=== PATIENT | female | born 1985 ===

== ENCOUNTER 2017-04-10 16:07 | Emergency (ER) | payer MEDICAID, OTHER ==
[2017-04-10 16:07] VITALS: BMI 43.2
[2017-04-10 16:24] VITALS: TEMP 97.9
--- NOTE | 2017-04-10 16:41 | ED PDOC ---
Arrival/HPI - General Historian: Patient - History of Present Illness Time/Duration: Other (3 days) Context: Home - General Chief Complaint: Dizziness/Lightheaded Time Seen by Provider: 04/10/17 16:16 - History of Present Illness Narrative History of Present Illness (Text): 04/10/17 16:38 This 31 yo female presents to this ED c/o fatigue, nausea, decreased appetite x 3 days. Patient stated she had a gastric Sleeve done 5 weeks ago. Patient saw her surgeon last week, and she was feeling well. On the contrary to triage note , patient denies abdominal pain. Patient developed nausea, and she feels she has not been eating or drinking enough. Denies fever, sob, cp, rectal bleeding, melena, hematemesis, dizziness, or abnormal gait. (Jasmine Bernal) Past Medical History - Provider Review Nursing Documentation Reviewed: Yes - Infectious Disease Hx of Infectious Diseases: None - Tetanus Immunization Tetanus Immunization: Unknown - Past Medical History Past Medical History: No Previous - Cardiac Hx Cardiac Arrhythmia: Yes (tachycardia) Hx Hypertension: Yes - Pulmonary Hx Respiratory Disorders: Yes Hx Asthma: Yes - Neurological Hx Neurological Disorder: No - HEENT Hx HEENT Disorder: No - Renal Hx Renal Disorder: No - Endocrine/Metabolic Hx Endocrine Disorders: No - Hematological/Oncological Hx Blood Transfusions: No Hx Blood Transfusion Reaction: No - Integumentary Hx Dermatological Disorder: No - Musculoskeletal/Rheumatological Hx Musculoskeletal Disorders: No - Gastrointestinal Hx Gall Bladder Disease: Yes (gallstones) - Genitourinary/Gynecological Hx Genitourinary Disorders: No - Psychiatric Hx Emotional Abuse: No Hx Physical Abuse: No Hx Substance Use: No - Surgical History Hx Section: Yes (x 4) Other/Comment: gastric sleeve 02/2017 - Anesthesia Hx Anesthesia: Yes Hx Anesthesia Reactions: No (itching) Hx Malignant Hyperthermia: No - Suicidal Assessment Feels Threatened In Home Enviroment: No Family/Social History - Physician Review Nursing Documentation Reviewed: Yes Family/Social History: Other (non-contributory) Smoking Status: Never Smoked Hx Alcohol Use: No Hx Substance Use: No Hx Substance Use Treatment: No Allergies/Home Meds Allergies/Adverse Reactions: Allergies lidocaine Adverse Reaction (Verified 04/10/17 16:24) RASH Home Medications: Home Meds Medication Instructions Recorded Confirmed Albuterol HFA [Ventolin HFA 90 2 puff INH PRN PRN 10/13/15 04/10/17 mcg/actuation (8 g)] Omeprazole [Prilosec] 40 mg PO DAILY 10/13/15 04/10/17 Review of Systems - Review of Systems Constitutional: Fatigue. absent: Weight Change, Fevers, Night Sweats Eyes: Normal ENT: Normal. absent: Sore Throat, Rhinorrhea Respiratory: Normal. absent: SOB, Cough, Sputum, Wheezing Cardiovascular: Normal. absent: Chest Pain, Palpitations Gastrointestinal: Nausea, Vomiting. absent: Abdominal Pain, Constipation, Diarrhea, Appetite Changes, Hematochezia, Hematemesis, Anorexia Genitourinary Female: Normal. absent: Dysuria, Frequency, Hematuria Musculoskeletal: Normal. absent: Back Pain, Myalgias Skin: Normal. absent: Rash Neurological: Dizziness. absent: Headache, Focal Weakness, Gait Changes, Speech Changes, Facial Droop, Disequilibrium Endocrine: Normal. absent: Diaphoresis, Polyuria Hemo/Lymphatic: Normal Psychiatric: Normal Physical Exam Temperature: Afebrile Blood Pressure: Normal Pulse: Regular Respiratory Rate: Normal Appearance: Positive for: Well-Appearing, Non-Toxic, Comfortable Pain Distress: None Mental Status: Positive for: Alert and Oriented X 3 Finger Stick Blood Glucose: 109 - Systems Exam Head: Present: Atraumatic, Normocephalic Pupils: Present: PERRL Extroacular Muscles: Present: EOMI Conjunctiva: Present: Normal Mouth: Present: Moist Mucous Membranes Neck: Present: Normal Range of Motion Respiratory/Chest: Present: Clear to Auscultation, Good Air Exchange. No: Respiratory Distress, Accessory Muscle Use Cardiovascular: Present: Regular Rate and Rhythm, Normal S1, S2. No: Murmurs Abdomen: Present: Normal Bowel Sounds, Scars, Other (obese). No: Tenderness, Distention, Peritoneal Signs, Rebound, Guarding Back: Present: Normal Inspection. No: CVA Tenderness Upper Extremity: Present: Normal Inspection, Normal ROM, NORMAL PULSES, Neurovascularly Intact. No: Cyanosis, Edema Lower Extremity: Present: Normal Inspection, NORMAL PULSES, Normal ROM, Neurovascularly Intact, Capillary Refill < 2 s. No: Edema, CALF TENDERNESS Neurological: Present: GCS=15, CN II-XII Intact, Speech Normal, Motor Func Grossly Intact, Normal Sensory Function, Normal Cerebellar Funct, Gait Normal Skin: Present: Warm, Dry, Normal Color. No: Rashes Psychiatric: Present: Alert, Oriented x 3, Normal Insight, Normal Concentration Vital Signs Temp Pulse Resp BP Pulse Ox 04/10/17 19:00 85 16 110/73 98 04/10/17 17:28 70 16 120/72 97 04/10/17 16:17 97.9 F 81 20 119/83 99 04/10/17 16:07 98.2 F 81 16 113/66 96 Medical Decision Making Re-evaluation Time: 19:34 Reassessment Condition: Re-examined, Improved - Lab Interpretations I have reviewed the lab results: Yes Interpretation: No clinic. lab abnormalty (except for possible cystitis) ED Course and Treatment: 04/10/17 19:44 Patient seen and evaluated with PA. Patient reports hx of gastric sleeve surgery one month ago. Has had no bowel movement for one week and patient reports lower crampy abdominal pain. She reports nausea and "spitting up" since her surgery after she "eats a certain amount". Over past two days has felt some fatigue and nausea and dizziness. On exam there is diffuse lower abdominal pain but normoactive bowel sounds and no rebound or guarding. No incarcerated masses palpated. Patient will have ct abdomen/pelvis to evaluate for bowel obstruction. (Brian Denis) 04/10/17 17:47 Patient appears comfortable, in no acute distress. Patient has been texting during the course of ED visit. Dr. Denis had examined patient, and he is recommending CT scan of abdomen w/o contrast for nausea 04/10/17 19:33 Patient is resting comfortably, in no distress, abdomen is soft, no rebound or guarding, and is tolerating PO. Patient has no signs or symptoms to suggest surgical pathology. Patient was advised to follow up without fail with physician /clinic or to return to the ER for reevaluation in 1-2 days. (Jasmine Bernal) - Lab Interpretations Lab Results: 04/10/17 17:05 04/10/17 17:05 Lab Results 04/10/17 18:00: Urine Color Yellow, Urine Appearance Cloudy, Urine pH 6.0, Ur Specific Arena >= 1.030, Urine Protein Trace H, Urine Glucose (UA) Negative, Urine Ketones Trace H, Urine Blood Negative, Urine Nitrate Negative, Urine Bilirubin Small H, Urine Urobilinogen 1.0 H, Ur Leukocyte Esterase Small H, Urine RBC 0 - 2, Urine WBC 2 - 5, Ur Epithelial Cells 4 - 5, Amorphous Sediment Many, Urine Bacteria Few, Urine HCG, Qual Negative 04/10/17 17:05: Lipase 46 04/10/17 17:05: Sodium 142, Potassium 3.4 L, Chloride 106, Carbon Dioxide 23, Anion Gap 16, BUN 7, Creatinine 0.6, Est GFR ( Amer) > 60, Est GFR (Non- Af Amer) > 60, Random Glucose 97, Calcium 9.3, Total Bilirubin 0.6, AST 34, ALT 34, Alkaline Phosphatase 50, Total Protein 7.0, Albumin 4.2, Globulin 2.8, Albumin/Globulin Ratio 1.5 04/10/17 17:05: WBC 5.8, RBC 4.46, Hgb 11.6 L, Hct 36.1, MCV 80.9, MCH 26.0, MCHC 32.1, RDW 16.1 H, Plt Count 205, Gran % 56.7, Lymph % (Auto) 31.1, Pope % ( Auto) 9.4 H, Eos % (Auto) 2.6, Baso % (Auto) 0.2, Gran # 3.26, Lymph # 1.8, Pope # 0.5, Eos # 0.2, Baso # 0.01 04/10/17 16:31: POC Glucose (mg/dL) 109 - RAD Interpretation Narrative RAD Interpretations (Text): 04/10/17 22:22 [facility] [address] [address] Tel. no. Patient Name: KIM ROGERS Pt. Address: [address] [place] [address] Rec #: [id number] [place] [address]: Gabe LEDESMA,Jasmine Grande Pt Order Location: ED : 1985 Female Age: 31 Order #: [id number] Reason for exam: nausea, vomiting, pain CT Scan ABD PELVIS W/O PO OR IV CONT Exam Date: 04/10/17 This imaging exam was performed at [facility] EXAM: CT Abdomen and Pelvis Without Intravenous Contrast CLINICAL HISTORY: 31 years old, female; Signs and symptoms; Nausea and vomiting; Prior surgery ; Surgery date: 6+ months; Surgery type: Gallbladder removal, bariatric surgery; Additional info: Nausea, vomiting, pain TECHNIQUE: Axial computed tomography images of the abdomen and pelvis without intravenous contrast. All CT scans at this facility use one or more dose reduction techniques, viz.: automated exposure control; ma/kV adjustment per patient size (including targeted exams where dose is matched to indication; i.e. head); or iterative reconstruction technique. Coronal and sagittal reformatted images were created and reviewed. COMPARISON: CT - ABD PELVIS W/O PO OR IV CONT 08/03/2016 10:08:15 PM FINDINGS: Limitations: Lack of intravenous contrast. Lower thorax: No acute findings. ABDOMEN: Liver: Unremarkable. Gallbladder and bile ducts: Cholecystectomy. No ductal dilation. Pancreas: Unremarkable. No ductal dilation. Spleen: Mild splenomegaly. Adrenals: No mass. Kidneys and ureters: No renal calculi. No hydronephrosis. Stomach and bowel: Postsurgical changes of stomach. Appendix: Normal caliber. No inflammation. PELVIS: Bladder: Borderline bladder wall thickening, up to 5 mm. Incomplete distention, limiting evaluation. No stones. Reproductive: Small ovarian follicles. ABDOMEN and PELVIS: Intraperitoneal space: No significant fluid collection. No free air. Bones/joints: No acute fracture. Soft tissues: Unremarkable. Vasculature: Unremarkable. No aneurysm. Lymph nodes: No pathologically enlarged lymph nodes. IMPRESSION: 1. Mild cystitis vs underdistention. Correlate with urinalysis. 2. Incidental/non-acute findings are described above. Dictated By: Ezequiel Mihcaud MD Dictated Date/Time: 04/10/172150 Signed By: Ezequiel Michaud MD Date Signed: 2150 Transcribed By: INGRID Transcribe Date/Time : 04/10/172150 ACYP02/KASSY (Jasmine Bernal) Radiology Orders: 04/10/17 19:43 ABD & PELVIS W/O PO OR IV CONT [CT] Stat - Medication Orders Current Medication Orders: Discontinued Medications Cephalexin Monohydrate (Keflex) 500 mg PO STAT STA PRN Reason: Protocol Stop: 04/10/17 19:33 Last Admin: 08/20/17 20:12 Dose: 10 ml Sodium Chloride (Sodium Chloride 0.9%) 1,000 mls @ 999 mls/hr IV .Q1H1M STA Stop: 04/10/17 17:44 Last Admin: 04/10/17 17:15 Dose: 999 mls/hr Ondansetron HCl (Zofran Inj) 4 mg IVP STAT STA Stop: 04/10/17 16:45 Last Admin: 04/10/17 17:14 Dose: 4 mg Ondansetron HCl (Zofran Inj) 4 mg IVP STAT STA Stop: 04/10/17 18:15 Last Admin: 04/10/17 18:27 Dose: 4 mg Disposition/Present on Arrival - Present on Arrival Any Indicators Present on Arrival: No History of DVT/PE: No History of Uncontrolled Diabetes: No Urinary Catheter: No History of Decub. Ulcer: No History Surgical Site Infection Following: None - Disposition Have Diagnosis and Disposition been Completed?: Yes Disposition Time: 22:23 Patient Plan: Discharge - Disposition Diagnosis: Nausea & vomiting, Cystitis Disposition: HOME/ ROUTINE Patient Problems: Current Active Problems Problem Status Onset Nausea & vomiting Acute Cystitis Acute Condition: IMPROVED Discharge Instructions (ExitCare): Acute Nausea and Vomiting (ED) Additional Instructions: Call private doctor for follow up visit in 1-2 days. Call your coremaking supervisor for revaluation. Take medication as instructed. return tot emergency if symptoms worsen. Return to emergency if symptoms worsen. Eat and drink enough amount as instructed by your surgeon Prescriptions: Cephalexin Susp [Keflex] 500 mg PO BID #100 ml Ondansetron ODT [Zofran ODT] 4 mg PO Q4H PRN #20 odt PRN Reason: Nausea/Vomiting Referrals: Rika Ibarra, [Primary Care Provider] - Follow up with primary Josemanuel Cerrato MD [Staff Provider] - Follow up with primary Forms: [employer] (Turkmen), WORK NOTE
[2017-04-10] MEDS ORDERED: Sodium Chloride 0.9% 1,000 ML IV STA (16:44)
[2017-04-10 17:29] VITALS: RESP 16
[2017-04-10 17:34] LABS: BASO # 0.01 K/mm3 (0.0-2.0); BASO % 0.2 % (0.0-3.0); EOS # 0.2 (0.0-0.7); EOS % 2.6 % (1.5-5.0); GRAN # 3.26 (1.4-6.5); GRAN % 56.7 % (50.0-68.0); HEMATOCRIT 36.1 % (36.0-48.0); LYMPH # 1.8 (1.2-3.4); LYMPH % 31.1 % (22.0-35.0); MEAN CELL VOLUME 80.9 fl (80.0-105.0); MEAN CORPUSCULAR HGB CONC 32.1 g/dl (31.0-37.0); MONO # 0.5 (0.1-0.6); MONO % 9.4 % (1.0-6.0); PLATELET COUNT 205 10^3/uL (120.0-450.0); RED CELL DISTRIBUTION WIDTH 16.1 % (11.5-14.5); WHITE BLOOD COUNT 5.8 10^3/ul (4.5-11.0)
[2017-04-10 17:47] LABS: ALB/GLOB RATIO 1.5 (1.1-1.8); ALKALINE PHOSPHATASE 50 U/L (38-133); ALT/SGPT 34 U/L (7-56); AST/SGOT 34 U/L (15-39); BILIRUBIN,TOTAL 0.6 mg/dL (0.2-1.3); BLOOD UREA NITROGEN 7 mg/dL (7-21); CALCIUM 9.3 mg/dL (8.4-10.5); CARBON DIOXIDE 23 mmol/L (21-33); CHLORIDE 106 mmol/L (98-107); GFR AFRICAN-AMERICAN > 60; GLUCOSE,RANDOM 97 mg/dL (70-110); POTASSIUM 3.4 mmol/L (3.6-5.0); SODIUM 142 mmol/L (132-148)
[2017-04-10 18:34] LABS: URINE BILIRUBIN SMALL (NEGATIVE); URINE BLOOD NEGATIVE (NEGATIVE); URINE GLUCOSE (UA) NEGATIVE (NEGATIVE); URINE KETONE TRACE mg/dL (NEGATIVE); URINE LEUKOCYTE ESTERASE SMALL Leu/uL (NEGATIVE); URINE PROTEIN TRACE mg/dL (<30 mg/dL)
[2017-04-10 18:35] LABS: URINE APPEARANCE CLOUDY (CLEAR); URINE COLOR YELLOW (YELLOW)
[2017-04-10 18:48] LABS: URINE AMORPHOUS SEDIMENT MANY; URINE BACTERIA FEW (NEG); URINE RBC 0 - 2 /hpf (0-2)
[2017-04-10 19:02] VITALS: BP 110/73; PULSE 85; O2SAT 98
[2017-04-10] MEDS ORDERED: Cephalexin Susp 250 MG/5 ML PO STA (19:32)
--- NOTE | 2017-04-10 21:51 | CT ---
EXAM: CT Abdomen and Pelvis Without Intravenous Contrast CLINICAL HISTORY: 31 years old, female; Signs and symptoms; Nausea and vomiting; Prior surgery; Surgery date: 6+ months; Surgery type: Gallbladder removal, bariatric surgery; Additional info: Nausea, vomiting, pain TECHNIQUE: Axial computed tomography images of the abdomen and pelvis without intravenous contrast. All CT scans at this facility use one or more dose reduction techniques, viz.: automated exposure control; ma/kV adjustment per patient size (including targeted exams where dose is matched to indication; i.e. head); or iterative reconstruction technique. Coronal and sagittal reformatted images were created and reviewed. COMPARISON: CT - ABD PELVIS W/O PO OR IV CONT 08/03/2016 10:08:15 PM FINDINGS: Limitations: Lack of intravenous contrast. Lower thorax: No acute findings. ABDOMEN: Liver: Unremarkable. Gallbladder and bile ducts: Cholecystectomy. No ductal dilation. Pancreas: Unremarkable. No ductal dilation. Spleen: Mild splenomegaly. Adrenals: No mass. Kidneys and ureters: No renal calculi. No hydronephrosis. Stomach and bowel: Postsurgical changes of stomach. Appendix: Normal caliber. No inflammation. PELVIS: Bladder: Borderline bladder wall thickening, up to 5 mm. Incomplete distention, limiting evaluation. No stones. Reproductive: Small ovarian follicles. ABDOMEN and PELVIS: Intraperitoneal space: No significant fluid collection. No free air. Bones/joints: No acute fracture. Soft tissues: Unremarkable. Vasculature: Unremarkable. No aneurysm. Lymph nodes: No pathologically enlarged lymph nodes. IMPRESSION: 1. Mild cystitis vs underdistention. Correlate with urinalysis. 2. Incidental/non-acute findings are described above.
== END 2017-04-10 22:27 | disposition home or self-care (01) ==
LOC: ED 16:07
DX: R11.2 Nausea with vomiting, unspecified (principal); N30.90 Cystitis, unspecified without hematuria
CPT/HCPCS: 74176; 80053; 81001; 82948; 83690; 84703; 85025; 87086; 96374; 96376; 99285; J2405; J7040

== ENCOUNTER 2018-06-24 06:38 | Emergency (ER) | payer MEDICAID ==
[2018-06-24 06:47] VITALS: BMI 22.7
[2018-06-24 07:03] VITALS: O2SAT 100
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
[2018-06-24 07:58] LABS: BASO # 0.01 K/mm3 (0.0-2.0); BASO % 0.1 % (0.0-3.0); EOS # 0.1 (0.0-0.7); EOS % 1.8 % (1.5-5.0); GRAN # 4.69 (1.4-6.5); GRAN % 69.7 % (50.0-68.0); HEMOGLOBIN 9.2 g/dL (12.0-16.0); LYMPH # 1.3 (1.2-3.4); LYMPH % 18.9 % (22.0-35.0); MEAN CELL VOLUME 71.9 fl (80.0-105.0); MEAN CORPUSCULAR HEMOGLOBIN 22.1 pg (25.0-35.0); MEAN CORPUSCULAR HGB CONC 30.7 g/dl (31.0-37.0); MEAN PLATELET VOLUME 11.9 fl (7.0-11.0); MONO # 0.6 (0.1-0.6); MONO % 9.5 % (1.0-6.0); RBC 4.17 10^6/uL (3.5-6.1); RED CELL DISTRIBUTION WIDTH 15.9 % (11.5-14.5); WHITE BLOOD COUNT 6.7 10^3/uL (4.5-11.0)
[2018-06-24 08:06] LABS: ACETAMINOPHEN < 10.0 ug/ml (10.0-20.0); ALB/GLOB RATIO 1.3 (1.1-1.8); ALBUMIN 4.3 g/dL (3.0-4.8); ALT/SGPT 21 U/L (7-56); AST/SGOT 22 U/L (14-36); BLOOD UREA NITROGEN 7 mg/dL (7-21); CALCIUM 8.8 mg/dL (8.4-10.5); GFR NON-AFRICAN AMERICAN > 60; SALICYLATE < 1 mg/dL (2.0-20.0)
[2018-06-24 08:17] LABS: TROPONIN I < 0.01 ng/mL
[2018-06-24 08:36] LABS: URINE BILIRUBIN NEGATIVE (NEGATIVE); URINE BLOOD NEGATIVE (NEGATIVE); URINE GLUCOSE (UA) NEGATIVE (NEGATIVE); URINE LEUKOCYTE ESTERASE TRACE Leu/uL (NEGATIVE); URINE PROTEIN NEGATIVE mg/dL (<30 mg/dL); URINE UROBILINOGEN 0.2 E.U./dL (<1 E.U./dL)
[2018-06-24 08:40] LABS: URINE APPEARANCE CLEAR (CLEAR); URINE COLOR YELLOW (YELLOW)
[2018-06-24 08:41] LABS: HCG,QUALITATIVE URINE NEGATIVE (NEGATIVE)
[2018-06-24 08:50] LABS: URINE BACTERIA SMALL (NEG); URINE RBC 0 - 2 /hpf (0-2)
[2018-06-24 08:56] LABS: BARBITURATES, UR NEGATIVE (NEGATIVE)
[2018-06-24 09:01] LABS: BENZODIAZEPINES, UR NEGATIVE (NEGATIVE); OPIATES, UR NEGATIVE (NEGATIVE); PHENCYCLIDINE, UR NEGATIVE (NEGATIVE)
--- NOTE | 2018-06-24 10:02 | RAD ---
Date of service: 06/24/2018 HISTORY: CP COMPARISON: No prior. FINDINGS: LUNGS: No active pulmonary disease. PLEURA: No significant pleural effusion identified, no pneumothorax apparent. CARDIOVASCULAR: No aortic atherosclerotic calcification present. Normal cardiac size. No pulmonary vascular congestion. OSSEOUS STRUCTURES: No significant abnormalities. VISUALIZED UPPER ABDOMEN: Normal. OTHER FINDINGS: None. IMPRESSION: No active disease.
[2018-06-24 10:15] VITALS: BP 144/67; PULSE 86; RESP 16; TEMP 98.1
--- NOTE | 2018-06-24 15:33 | CARD ---
APPROVED REPORT Date of service: 06/24/2018 EKG Measurement Heart [id number] <Conclusion> Normal sinus rhythm Normal ECG
== END 2018-06-24 10:51 | disposition home or self-care (01) ==
LOC: ED 06:38
DX: R07.9 Chest pain, unspecified (principal); F41.9 Anxiety disorder, unspecified; F19.10 Other psychoactive substance abuse, uncomplicated; V49.9XXA Car occupant (driver) (passenger) injured in unspecified traffic accident, initial encounter; F17.210 Nicotine dependence, cigarettes, uncomplicated; I10 Essential (primary) hypertension